=== PATIENT | female | born 1975 | race Caucasian/White ===

== ENCOUNTER → 2016-11-02 | Outpatient (CLI) | payer OTHER ==
[~2016-11-02] MED LIST: ALBUAER2 INH; MULT-506 PO; PRAM1TAB6 PO; PSEU30TA20 PO; RANI150T3 PO; SNG10 PO
[2016-11-02 13:19] LABS: BASO % 0.3 %; BASO ABS # 0.02 K/uL (0-0.2); COMPLETE YES; EOS % 3.7 %; HEMATOCRIT 37.8 % (37-47); IG% 0.3 %; LYMPH % 41.5 %; LYMPH ABS # 2.55 K/uL (1.2-3.4); MEAN CELL VOLUME 85.9 fL (80-100); MEAN CORPUSCULAR HEMOGLOBIN 29.1 pg (25-34); MEAN CORPUSCULAR HGB CONC 33.9 g/dl (32-36); MEAN PLATELET VOLUME 9.6 fL (7.4-10.4); MONO % 6.5 %; NEUT % 47.7 %; PLATELET COUNT 172 K/uL (130-400); WHITE BLOOD COUNT 6.15 K/uL (4.8-10.8)
[2016-11-02 13:43] LABS: CALCIUM 9.1 mg/dl (8.5-10.1)
[2016-11-02 13:44] LABS: BLOOD UREA NITROGEN 15 mg/dl (7-18); BUN/CREATININE RATIO 18.9 (10-20); CARBON DIOXIDE 27 mmol/L (21-32); CHLORIDE 109 mmol/L (98-107); CREATININE 0.78 mg/dl (0.60-1.20); GLUCOSE 73 mg/dl (70-99); POTASSIUM 3.4 mmol/L (3.5-5.1); SODIUM 142 mmol/L (136-145)
[2016-11-02 13:47] LABS: CHOLESTEROL 193 mg/dl (0-200); CHOLESTEROL/HDL RATIO 4.6; HDL CHOLESTEROL 42 mg/dl; LDL CHOLESTEROL CALCULATED 107 mg/dl; TRIGLYCERIDES 220 mg/dl (0-150); VERY LOW DENSITY LIPOPROT CALC 44 mg/dl
== END | disposition home or self-care (01) ==
LOC: C.LAB1850 12:22
PROVIDERS: ATTEND Nurse Practitioner Adult Health
DX: I10 Essential (primary) hypertension (principal)

== ENCOUNTER 2017-02-19 10:24 | Emergency (ER) | payer OTHER ==
[~2017-02-19] VITALS: Ht 170.2 cm; Wt 115.8 kg
[2017-02-19 10:32] VITALS: TEMP 37.1; Ht 170.2 cm; Wt 115.8 kg
[2017-02-19] MEDS ORDERED: ACETAMINOPHEN 500 MG TAB PO STA (10:55)
[2017-02-19] MEDS ORDERED: IBUPROFEN 200 MG TAB PO STA (10:55)
[2017-02-19] MEDS ORDERED: COUGH DROP (SUGAR FREE) LOZ 24 LOZ/1 BOX PO STA (10:55)
[2017-02-19] MEDS ORDERED: SODIUM CHLORIDE 0.9% 1000ML 1,000 ML IV STA (10:55)
[2017-02-19] MEDS ORDERED: AZITHROMYCIN 250 MG TAB PO ONE (11:00)
--- NOTE | 2017-02-19 11:11 | EMERGENCY ROOM VISIT NOTE ---
History Report prepared by Taylor: Lynette Smith Under the Supervision of: Dr. Blane Francois M.D. First contact with patient: 10:36 Chief Complaint: COUGH Stated Complaint: COUGH, SOB, LIGHTHEADED, MUCUS History of Present Illness The patient is a 42 year old white female with a past medical history of cholecystectomy, hypertension, depression, and section who presents to the ED with a cc of constant cough beginning 3 weeks ago. Pt states that she has had a productive cough with yellow-green sputum and a runny nose of a similar color. She notes that everyone at home is sick with similar symptoms and they have not yet seen a doctor. She reports that she has no history of blood clots. Positive congestion, runny nose, fever of 101.4. Negative recent antibiotics, leg swelling. She notes that she has taken decongestants, Motrin, and Tylenol. Source of History: patient Onset: 3 weeks ago Position: other (global) Quality: other (cough) Timing: constant Associated Symptoms: + fevers Note: Positive congestion, runny nose. Denies leg swelling. Review of Systems See HPI for pertinent positives and negatives. A total of ten systems were reviewed and were otherwise negative. Past Medical & Surgical Medical Problems: (1) section (2) Failure to progress in second stage of labor Family History Cancer Heart disease Social History Smoking Status: Never Smoker Marital Status: Housing Status: lives with significant other Occupation Status: other Current/Historical Medications Scheduled Azithromycin (Zithromax), 250 MG PO DAILY Bupropion HCl (Bupropion HCl Sr), 100 MG PO DAILY Hydrochlorothiazide (Hydrochlorothiazide), 25 MG PO DAILY Montelukast Sod (Montelukast Sodium), 10 MG PO HS Multivitamin (Multivitamin), 1 TAB PO DAILY Pramipexole Dihydrochloride (Pramipexole Dihydrochlori), 1 MG PO HS Ranitidine Hcl (Zantac), 150 MG PO DAILY Scheduled PRN Albuterol Hfa (Ventolin Hfa), 2 PUFFS INH Q4H PRN for SOB/Wheezing Allergies Coded Allergies: Citalopram (Verified Allergy, Severe, SHORTNESS OF BREATH, 02/19/17) Aspirin (Verified Adverse Reaction, Intermediate, NOSEBLEED- CAN TAKE IBUPROFEN, 02/19/17) Physical Exam Vital Signs Date Time Temp Pulse Resp B/P (MAP) Pulse Ox O2 Delivery O2 Flow Rate FiO2 02/19/17 13:11 72 16 124/76 98 Room Air 02/19/17 12:16 68 16 120/74 98 Room Air 02/19/17 11:16 72 16 115/73 96 Room Air 02/19/17 10:32 98 Room Air 02/19/17 10:32 37.1 98 17 147/85 95 Room Air Physical Exam GENERAL: Awake, alert, well-appearing, NAD HENT: Normocephalic, atraumatic. EYES: Normal conjunctiva. Sclera non-icteric. NECK: Supple. No nuchal rigidity. FROM. RESPIRATORY: Senoras breath sounds, no rhonchi, wheezing, crackles CARDIAC: RRR, no MRG ABDOMEN: Soft, NTND, BS+ MSK: No chest wall TTP, no LE edema NEURO: GCS 15, CN 2-12 intact, moves all 4s on command SKIN: No rash or jaundice noted. Medical Decision & Procedures ER Provider Diagnostic Interpretation: X-ray: Per my interpretation, radiologist review. CHEST 2 VIEWS ROUTINE FINDINGS: No pneumothorax. No pleural effusions. The heart is normal in size. Focal airspace opacity within the anterior segment of the right upper lobe. Faint patchy airspace opacity within the left lower lobe. No evidence for pulmonary edema. IMPRESSION: Right upper lobe and left lower lobe airspace opacities consistent with a multifocal pneumonia. Recommend one month chest x-ray follow to ensure resolution. Electronically signed by: Nasir Rutledge M.D. 02/19/2017 11:49 AM Dictated Date/Time: 02/19/2017 11:45 AM Laboratory Results 02/19/17 11:15 Red Blood Count 3.88, Mean Corpuscular Volume 85.1, Mean Corpuscular Hemoglobin 29.9, Mean Corpuscular Hemoglobin Concent 35.2, Mean Platelet Volume 9.8, Neutrophils (%) (Auto) 79.3, Lymphocytes (%) (Auto) 11.1, Monocytes (%) (Auto) 7.3, Eosinophils (%) (Auto) 1.3, Basophils (%) (Auto) 0.2, Neutrophils # (Auto) 11.30, Lymphocytes # (Auto) 1.58, Monocytes # (Auto) 1.04, Eosinophils # (Auto) 0.18, Basophils # (Auto) 0.03 02/19/17 11:15 Test 02/19/17 11:15 White Blood Count 14.25 K/uL (4.8-10.8) Red Blood Count 3.88 M/uL (4.2-5.4) Hemoglobin 11.6 g/dL (12.0-16.0) Hematocrit 33.0 % (37-47) Mean Corpuscular Volume 85.1 fL (80-100) Mean Corpuscular Hemoglobin 29.9 pg (25-34) Mean Corpuscular Hemoglobin Concent 35.2 g/dl (32-36) Platelet Count 168 K/uL (130-400) Mean Platelet Volume 9.8 fL (7.4-10.4) Neutrophils (%) (Auto) 79.3 % Lymphocytes (%) (Auto) 11.1 % Monocytes (%) (Auto) 7.3 % Eosinophils (%) (Auto) 1.3 % Basophils (%) (Auto) 0.2 % Neutrophils # (Auto) 11.30 K/uL (1.4-6.5) Lymphocytes # (Auto) 1.58 K/uL (1.2-3.4) Monocytes # (Auto) 1.04 K/uL (0.11-0.59) Eosinophils # (Auto) 0.18 K/uL (0-0.5) Basophils # (Auto) 0.03 K/uL (0-0.2) RDW Standard Deviation 42.2 fL (36.4-46.3) RDW Coefficient of Variation 13.6 % (11.5-14.5) Immature Granulocyte % (Auto) 0.8 % Immature Granulocyte # (Auto) 0.12 K/uL (0.00-0.02) Prothrombin Time 12.0 SECONDS (9.0-12.0) Prothromb Time International Ratio 1.1 (0.9-1.1) Activated Partial Thromboplast Time 33.1 SECONDS (21.0-31.0) Partial Thromboplastin Ratio 1.3 Anion Gap 10.0 mmol/L (3-11) Est Creatinine Clear Calc Drug Dose 111.1 ml/min Estimated GFR () 96.6 Estimated GFR (Non- 83.3 BUN/Creatinine Ratio 22.8 (10-20) Calcium Level 8.8 mg/dl (8.5-10.1) Laboratory results reviewed by me Medications Administered Medications (Trade) Dose Ordered Sig/Deyanira Route Start Time Stop Time Status Last Admin Dose Admin Sodium Chloride 1,000 ml @ 999 mls/hr Q1H1M STAT IV 02/19/17 10:55 02/19/17 11:55 DC 02/19/17 10:55 999 MLS/HR Ibuprofen (Advil Tab) 400 mg NOW STAT PO 02/19/17 10:55 02/19/17 10:58 DC 02/19/17 10:55 400 MG Acetaminophen (Tylenol Tab) 1,000 mg NOW STAT PO 02/19/17 10:55 02/19/17 10:58 DC 02/19/17 10:55 1,000 MG Menthol (Nice Abundio) 1 abundio NOW STAT PO 02/19/17 10:55 02/19/17 10:58 DC 02/19/17 10:55 1 ABUNDIO Azithromycin (Zithromax Tab) 500 mg NOW ONCE PO 02/19/17 11:00 02/19/17 11:01 DC 02/19/17 11:00 500 MG Magnesium Oxide (Mag-Ox Tab) 800 mg ONE STAT PO 02/19/17 11:57 02/19/17 11:59 DC 02/19/17 11:57 800 MG Potassium Chloride (Muriel Ciel Elix) 40 meq NOW STAT PO 02/19/17 11:57 02/19/17 11:59 DC 02/19/17 11:57 40 MEQ Ceftriaxone Sodium (Rocephin Inj) 1 gm NOW STAT IV 02/19/17 11:59 02/19/17 12:00 DC 02/19/17 11:59 1 GM ECG Indication: SOB/dyspnea Rate (beats per minute): 99 Rhythm: normal sinus Findings: no ectopy, other (normal intervals, motion artifact in lateral leads , no STS changes or T wave inversions) ED Course 1036: The patient was evaluated in room C7. A complete history and physical exam was performed. 1055: Menthol 1 abundio PO, Tylenol Tab 1000mg PO, Advil Tab 400mg PO, Sodium Chloride 1000 ml @ 999 mls/hr IV. 1100: Zithromax Tab 500mg PO. 1157: Potassium Chloride 40meq PO, Magnesium Oxide 800mg PO, Rocephin Inj 1gm IV. 1315: I reevaluated the patient. Discussed results and discharge instructions: She verbalized understanding and agreement. The patient is ready for discharge. Medical Decision The patient is a 42 year old white female with a past medical history of cholecystectomy, hypertension, depression, and section who presents to the ED with a cc of constant cough beginning 3 weeks ago. Differential diagnosis: Etiologies such as infections, reactive airway disease, pneumonia, pneumothorax , COPD, CHF, cardiac ischemia, pulmonary embolism, musculoskeletal, gastrointestinal, as well as others were entertained. Patient was seen and evaluated at the bedside. Patient has complained of persistent cough for 2-3 weeks. Patient has noted that her family members have had some similar symptoms although they improved. Patient denies a flu shot. Patient has had some rhinorrhea. She has not had a headache or signs of meningismus or meningitis. Patient has tried Motrin and Tylenol without much additional relief. She's also tried nasal sprays and decongestants. Patient's prolonged symptoms patient received empiric antibiotics with azithromycin. Patient also received supportive care had blood work, EKG, chest x-ray completed. Patient's white blood cell count was 14,000. Patient did have a chest x-ray concerning for multifocal pneumonia. Patient was not tachycardic nor tachypneic nor hypotensive nor hypoxic. EKG non-ischemic. Patient did receive Rocephin in addition to azithromycin. Patient was feeling much improved. Patient was very well-appearing and agreed with outpatient treatment given her stable vital signs. Rx given for home. Patient was told return if she gets any worse within the next 24-48 hours. Patient agreed with plan of care and patient was safely discharged home. Medication Reconcilliation Current Medication List: was personally reviewed by me Blood Pressure Screening Patient's blood pressure: Elevated blood pressure Blood pressure disposition: Elevated BP felt to be situational Impression Primary Impression: Cough Additional Impression: Multifocal pneumonia Scribe Attestation The scribe's documentation has been prepared under my direction and personally reviewed by me in its entirety. I confirm that the note above accurately reflects all work, treatment, procedures, and medical decision making performed by me. Departure Information Dispostion Home / Self-Care Prescriptions Azithromycin (Zithromax) 250 Mg Tab 250 MG PO DAILY for 4 Days, #4 TAB Prov: Blane Francois M.D. 02/19/17 Referrals Tawanna Burger C.R.N.P. (PCP) Patient Instructions My [facility], Pneumonia Additional Instructions Please return to the emergency department if you have worsening or recurrent symptoms not amenable to at-home treatment. Please call for a follow-up appointment with her primary care physician. Please take your medications as prescribed. If you have other concerns and/or complaints please feel free to also call your primary care physician's office or return the ED for further evaluation, management, and treatment. You may take 600 mg Ibuprofen every 6 hours as needed for pain with food for no more than 2 consecutive days. You may take tylenol 1000mg every 6 hours as needed for pain. You may take motrin and tylenol separately or at the same time. You have been examined and treated today on an emergency basis only. This is not a substitute for, or an effort to provide, complete comprehensive medical care. It is impossible to recognize and treat all injuries or illnesses in a single emergency department visit. It is therefore important that you follow up closely with [facility] [address]. Call as soon as possible for an appointment. Thank you for your time and consideration. I look forward to speaking with you again soon. Please don't hesitate to call us if you have any questions. Problem Qualifiers
[2017-02-19 11:31] LABS: MEAN CELL VOLUME 85.1 fL (80-100); MEAN CORPUSCULAR HEMOGLOBIN 29.9 pg (25-34); MEAN CORPUSCULAR HGB CONC 35.2 g/dl (32-36); MEAN PLATELET VOLUME 9.8 fL (7.4-10.4); PLATELET COUNT 168 K/uL (130-400); RED BLOOD COUNT 3.88 M/uL (4.2-5.4); WHITE BLOOD COUNT 14.25 K/uL (4.8-10.8)
[2017-02-19 11:41] LABS: INR 1.1 (0.9-1.1); PARTIAL THROMBOPLASTIN RATIO 1.3
[2017-02-19] MEDS ORDERED: VNTHFA/IN INH (11:43)
[2017-02-19] MEDS ORDERED: HYDR25TA5 PO (11:44)
[2017-02-19] MEDS ORDERED: WLLSR100 PO (11:44)
--- NOTE | 2017-02-19 11:50 | DIAGNOSTIC IMAGING REPORT ---
CHEST 2 VIEWS ROUTINE HISTORY: Short of breath. Cough. Atypical CHEST PAIN COMPARISON: Chest 05/01/2014. FINDINGS: No pneumothorax. No pleural effusions. The heart is normal in size. Focal airspace opacity within the anterior segment of the right upper lobe. Faint patchy airspace opacity within the left lower lobe. No evidence for pulmonary edema. IMPRESSION: Right upper lobe and left lower lobe airspace opacities consistent with a multifocal pneumonia. Recommend one month chest x-ray follow to ensure resolution. Electronically signed by: Nasir Rutledge M.D. 02/19/2017 11:49 AM Dictated Date/Time: 02/19/2017 11:45 AM
[2017-02-19 11:54] LABS: BUN/CREATININE RATIO 22.8 (10-20); CALCIUM 8.8 mg/dl (8.5-10.1); CREATININE 0.85 mg/dl (0.60-1.20); POTASSIUM 2.9 mmol/L (3.5-5.1)
[2017-02-19] MEDS ORDERED: MAGNESIUM OXIDE 400 MG TAB PO STA (11:57)
[2017-02-19] MEDS ORDERED: POTASSIUM CHLORIDE 20 MEQ/15 ML UDC PO STA (11:57)
[2017-02-19] MEDS ORDERED: CEFTRIAXONE SOD INJ 1 GM ADDVIAL IV STA (11:59)
[2017-02-19 12:11] LABS: BASO % 0.2 %; BASO ABS # 0.03 K/uL (0-0.2); COMPLETE YES; EOS % 1.3 %; IG% 0.8 %; LYMPH % 11.1 %; LYMPH ABS # 1.58 K/uL (1.2-3.4); MONO % 7.3 %; NEUT % 79.3 %
[2017-02-19] MEDS ORDERED: AZIT250T PO (12:57)
[2017-02-19 13:11] VITALS: BP 124/76; PULSE 72; O2SAT 98
== END 2017-02-19 13:30 | disposition home or self-care (01) ==
LOC: C.EDB 10:25 → C.EDC 13:30
DX: R05 Cough (principal); J18.9 Pneumonia, unspecified organism; I10 Essential (primary) hypertension; F32.9 Major depressive disorder, single episode, unspecified

== ENCOUNTER → 2017-02-20 | Outpatient (CLI) | payer OTHER ==
[~2017-02-20] MED LIST changes: -ALBUAER2 INH; +AZIT250T PO; +HYDR25TA5 PO; -PSEU30TA20 PO; +VNTHFA/IN INH; +WLLSR100 PO
== END | disposition home or self-care (01) ==
LOC: C.PAPS 12:18
PROVIDERS: ATTEND Physician Assistant
DX: Z12.4 Encounter for screening for malignant neoplasm of cervix (principal)

== ENCOUNTER 2017-03-04 08:59 | Emergency (ER) | payer OTHER ==
[~2017-03-04] VITALS: Ht 167.6 cm; Wt 113.9 kg
[~2017-03-04 08:59] MED LIST changes: -AZIT250T PO
[2017-03-04 09:14] VITALS: TEMP 37; Ht 167.6 cm; Wt 113.9 kg
[2017-03-04 09:27] VITALS: O2SAT 95
[2017-03-04] MEDS ORDERED: ALBUT/IPRATROP 3MG/0.5MG NEB 3 ML VIAL INH STA (09:30)
--- NOTE | 2017-03-04 09:39 | EMERGENCY ROOM VISIT NOTE ---
History First contact with patient: :19 Chief Complaint: COUGH Stated Complaint: COUGH, BLOOD IN MUCUS,SINUSES STUFFED, HERE 02/19 Nursing Triage Summary: 2 weeks ago dx with pneumonia pt did feel better but today awoke with productive cough blood in sputum general illness and body aches History of Present Illness The patient is a 42 year old female who presents to the Emergency Room with complaints of shortness of breath and recurrent cough today. She came tot he ED two weeks ago, and was found to have a RUL and LLL pneumonia on CXR, after having had a cough for about 3 weeks. She was given a dose of Rocephin but also a Z pack to finish at home. She reports it took her a week to feel better. She had a period of feeling ok for 2 days. She woke up today with new shortness of breath and persistent cough. She reports there was a small amount of blood tinged sputum, but when she coughed again this did not happen. She reports she has a history of asthma. She does not use a Flovent or Proair inhaler regularly. She has never been intubated or admitted for asthma exacerbations. She last used Proair once yesterday before bed. She denies further fevers. Source of History: patient History Limited By: dyspnea Symptom Intensity: mild Timing: intermittent Associated Symptoms: No fevers, No chills, No headache, No diaphoresis, No sorethroat, No neck pain, No chest pain, No nausea, No vomiting, No abdominal pain Review of Systems See HPI for pertinent positives & negatives. A total of 10 systems reviewed and were otherwise negative. Past Medical/Surgical History Medical Problems: (1) section (2) Failure to progress in second stage of labor Family History Cancer Heart disease Social History Smoking Status: Never Smoker Marital Status: Housing Status: lives with significant other Occupation Status: other Current/Historical Medications Scheduled Bupropion HCl (Bupropion HCl Sr), 100 MG PO DAILY Hydrochlorothiazide (Hydrochlorothiazide), 25 MG PO DAILY Montelukast Sod (Montelukast Sodium), 10 MG PO HS Multivitamin (Multivitamin), 1 TAB PO DAILY Potassium Chloride (K-Tabs), 1 TAB PO BID Pramipexole Dihydrochloride (Pramipexole Dihydrochlori), 1 MG PO HS Ranitidine Hcl (Zantac), 150 MG PO DAILY Scheduled PRN Albuterol Hfa (Ventolin Hfa), 2 PUFFS INH Q4H PRN for SOB/Wheezing Albuterol Hfa (Ventolin Hfa), 2-4 PUFFS INH Q6H PRN for Shortness of Breath Physical Exam Vital Signs Date Time Temp Pulse Resp B/P (MAP) Pulse Ox O2 Delivery O2 Flow Rate FiO2 03/04/17 10:52 97 16 147/75 95 03/04/17 10:37 97 16 147/75 95 Room Air 03/04/17 09:27 95 Room Air 03/04/17 09:15 98 Room Air 03/04/17 09:14 37.0 107 20 146/83 97 Room Air Physical Exam GENERAL: Awake, alert, well-appearing, in no acute distress. HENT: Normocephalic, atraumatic. Oropharynx unremarkable. EYES: Normal conjunctiva. Sclera non-icteric. NECK: Supple. No nuchal rigidity. FROM. No JVD. RESPIRATORY: Clear to auscultation. No audible wheeze, crackles, or rales. CARDIAC: Regular rate, normal rhythm. Extremities warm and well perfused. Pulses equal. ABDOMEN: Soft, non-distended. No tenderness to palpation. No rebound or guarding. No masses. RECTAL: Deferred. MUSCULOSKELETAL: Chest examination reveals no tenderness. The back is symmetrical on inspection without obvious abnormality. There is no CVA tenderness to palpation. No joint edema. LOWER EXTREMITIES: Calves are equal size bilaterally and non-tender. No edema. No discoloration. NEURO: Normal sensorium. No sensory or motor deficits noted. SKIN: No rash or jaundice noted. Medical Decision & Procedures Laboratory Results 03/04/17 09:38 Red Blood Count 4.23, Mean Corpuscular Volume 85.6, Mean Corpuscular Hemoglobin 29.6, Mean Corpuscular Hemoglobin Concent 34.5, Mean Platelet Volume 9.7, Neutrophils (%) (Auto) 71.4, Lymphocytes (%) (Auto) 18.4, Monocytes (%) (Auto) 8.0, Eosinophils (%) (Auto) 1.6, Basophils (%) (Auto) 0.3, Neutrophils # (Auto) 5.52, Lymphocytes # (Auto) 1.42, Monocytes # (Auto) 0.62, Eosinophils # (Auto) 0.12, Basophils # (Auto) 0.02 03/04/17 09:38 Test 03/04/17 09:38 White Blood Count 7.72 K/uL (4.8-10.8) Red Blood Count 4.23 M/uL (4.2-5.4) Hemoglobin 12.5 g/dL (12.0-16.0) Hematocrit 36.2 % (37-47) Mean Corpuscular Volume 85.6 fL (80-100) Mean Corpuscular Hemoglobin 29.6 pg (25-34) Mean Corpuscular Hemoglobin Concent 34.5 g/dl (32-36) Platelet Count 172 K/uL (130-400) Mean Platelet Volume 9.7 fL (7.4-10.4) Neutrophils (%) (Auto) 71.4 % Lymphocytes (%) (Auto) 18.4 % Monocytes (%) (Auto) 8.0 % Eosinophils (%) (Auto) 1.6 % Basophils (%) (Auto) 0.3 % Neutrophils # (Auto) 5.52 K/uL (1.4-6.5) Lymphocytes # (Auto) 1.42 K/uL (1.2-3.4) Monocytes # (Auto) 0.62 K/uL (0.11-0.59) Eosinophils # (Auto) 0.12 K/uL (0-0.5) Basophils # (Auto) 0.02 K/uL (0-0.2) RDW Standard Deviation 42.8 fL (36.4-46.3) RDW Coefficient of Variation 14.0 % (11.5-14.5) Immature Granulocyte % (Auto) 0.3 % Immature Granulocyte # (Auto) 0.02 K/uL (0.00-0.02) Anion Gap 8.0 mmol/L (3-11) Est Creatinine Clear Calc Drug Dose 82.1 ml/min Estimated GFR () 69.2 Estimated GFR (Non- 59.7 BUN/Creatinine Ratio 16.0 (10-20) Calcium Level 9.0 mg/dl (8.5-10.1) Medications Administered Medications (Trade) Dose Ordered Sig/Deyanira Route Start Time Stop Time Status Last Admin Dose Admin Albuterol/ Ipratropium (Duoneb) 3 ml ONE STAT INH 03/04/17 09:30 03/04/17 09:31 DC 03/04/17 09:41 3 ML ED Course 9:30AM: I evaluated the patient in room A9B. A complete history and physical examination were performed. 9:33AM: I reviewed the case with Dr. Vyas, Attending physician. I ordered a CBC , PRP, CXR. I provided a Duoneb treatment. 9:52AM: Dr. Vyas also evaluated the patient. 10:15AM: I checked on the patient. She reported feeling better. I informed her that her CXR results were negative. 10:32AM: The patient was discharged home in good condition. Medical Decision 42 year old female with recent pneumonia who presents with new shortness of breath. Differential includes: bronchitis, pneumonia, asthma exacerbation, viral URI, postnasal drip. She had an IV placed and labs drawn. She was given a Duoneb treatment. This provided some relief and she felt well afterwards. She was slightly hypokalemic on labwork, otherwise labs were unremarkable. She was instructed on how to use and the frequency of using her Ventolin inhaler. She was advised to use this with a spacer to ensure the medication reaches into her lungs. She was discharged home in good condition and advised to follow up with her PCP. Blood Pressure Screening Blood pressure disposition: Elevated BP felt to be situational Impression Primary Impression: Acute bronchitis Departure Information Dispostion Home / Self-Care Condition GOOD Prescriptions Potassium Chloride (K-Tabs) 10 Meq Tabcr 1 TAB PO BID for 14 Days, #28 TAB Prov: Inez Moody MD 03/04/17 Albuterol Hfa (VENTOLIN HFA) 200 Puffs/[id number] Mcg Aers 2-4 PUFFS INH Q6H Y for Shortness of Breath for 30 Days, #1 INHALER Use SPACER DEVICE Prov: Inez Moody MD 03/04/17 Referrals Tawanna Burger C.R.NVitaPVita (PCP) Patient Instructions My [facility]
[2017-03-04 09:50] LABS: BASO % 0.3 %; BASO ABS # 0.02 K/uL (0-0.2); COMPLETE YES; EOS % 1.6 %; HEMATOCRIT 36.2 % (37-47); IG% 0.3 %; LYMPH % 18.4 %; LYMPH ABS # 1.42 K/uL (1.2-3.4); MEAN CELL VOLUME 85.6 fL (80-100); MEAN CORPUSCULAR HEMOGLOBIN 29.6 pg (25-34); MEAN CORPUSCULAR HGB CONC 34.5 g/dl (32-36); MEAN PLATELET VOLUME 9.7 fL (7.4-10.4); NEUT % 71.4 %; PLATELET COUNT 172 K/uL (130-400); RED BLOOD COUNT 4.23 M/uL (4.2-5.4); WHITE BLOOD COUNT 7.72 K/uL (4.8-10.8)
--- NOTE | 2017-03-04 09:52 | EMERGENCY ROOM VISIT NOTE ---
ED Visit Note First contact with patient: 09:19 Resident Physician Supervision Note: I interviewed and examined the patient. Discussed with Dr. Moody and agree with findings and plan as documented in the note. Any exceptions or clarifications are listed here: [None] Documented By: Isaac Vyas
[2017-03-04 10:06] LABS: CREATININE 1.12 mg/dl (0.60-1.20); POTASSIUM 3.2 mmol/L (3.5-5.1)
--- NOTE | 2017-03-04 10:23 | DIAGNOSTIC IMAGING REPORT ---
CHEST 2 VIEWS ROUTINE CLINICAL HISTORY: recent PNA - new cough dyspnea COMPARISON STUDY: 02/17/2017 FINDINGS: The bones soft tissues and hemidiaphragms are normal. The cardiomediastinal silhouette is normal. The lungs are clear. The pulmonary vasculature is normal. IMPRESSION: Negative chest. The above report was generated using voice recognition software. It may contain grammatical, syntax or spelling errors. Electronically signed by: Kimo Daniels M.D. 03/04/2017 10:22 AM Dictated Date/Time: 03/04/2017 10:21 AM
[2017-03-04] MEDS ORDERED: VNTHFA/IN INH (10:34)
[2017-03-04] MEDS ORDERED: MCRK/10 PO (10:35)
[2017-03-04 10:52] VITALS: BP 147/75; PULSE 97; O2SAT 95
== END 2017-03-04 10:53 | disposition home or self-care (01) ==
LOC: C.EDB 09:01 → C.EDA 10:53
DX: J20.9 Acute bronchitis, unspecified (principal); J45.909 Unspecified asthma, uncomplicated

== ENCOUNTER → 2017-04-05 | Outpatient (CLI) | payer OTHER ==
[~2017-04-05] MED LIST changes: +MCRK/10 PO
--- NOTE | 2017-04-05 13:19 | DIAGNOSTIC IMAGING REPORT ---
LEFT KNEE 2 VIEWS HISTORY: [id number] Left knee [id number] COMPARISON: None. FINDINGS: There is no fracture or dislocation. Soft tissues are unremarkable. No radiopaque foreign bodies. Small knee effusion. Cartilage spaces are maintained for age. IMPRESSION: No fractures. Small knee effusion. Electronically signed by: Nasir Rutledge M.D. 04/05/2017 1:17 PM Dictated Date/Time: 04/05/2017 1:17 PM
== END | disposition home or self-care (01) ==
LOC: C.RAD1850 12:21
PROVIDERS: ATTEND Nurse Practitioner Adult Health
DX: S89.92XA Unspecified injury of left lower leg, initial encounter (principal); X58.XXXA Exposure to other specified factors, initial encounter

== ENCOUNTER → 2017-04-10 | Outpatient (CLI) | payer OTHER ==
--- NOTE | 2017-04-10 16:58 | DIAGNOSTIC IMAGING REPORT ---
CHEST 2 VIEWS ROUTINE CLINICAL HISTORY: R05 cough COMPARISON STUDY: 03/04/2017 FINDINGS: The cardiac and mediastinal contours are normal. There is no evidence of focal pulmonary consolidation. There is no evidence of failure. No pleural effusions are visualized.[ IMPRESSION: No active disease in the chest. Electronically signed by: Stefan Jaramillo M.D. 04/10/2017 4:56 PM Dictated Date/Time: 04/10/2017 4:56 PM
== END | disposition home or self-care (01) ==
LOC: C.RAD1850 16:19
PROVIDERS: ATTEND Physician Assistant Medical
DX: Z86.39 Personal history of other endocrine, nutritional and metabolic disease (principal); R05 Cough

== ENCOUNTER → 2017-04-17 | Outpatient (CLI) | payer OTHER ==
[2017-04-17 13:44] LABS: POTASSIUM 3.3 mmol/L (3.5-5.1)
[2017-04-17 13:53] LABS: MAGNESIUM 1.9 mg/dl (1.8-2.4)
== END | disposition home or self-care (01) ==
LOC: C.LAB1850 11:05
PROVIDERS: ATTEND Nurse Practitioner Adult Health
DX: Z86.39 Personal history of other endocrine, nutritional and metabolic disease (principal)

== ENCOUNTER → 2017-04-27 | Outpatient (CLI) | payer OTHER ==
--- NOTE | 2017-04-27 08:43 | DIAGNOSTIC IMAGING REPORT ---
(BARIUM SWALLOW) ESOPHAGUS CLINICAL HISTORY: 42 years-old Female with K21.9 Acid reflux [id number] Difficulty [id number]. Gastroesophageal reflux TECHNIQUE: Barium contrast and effervescent crystals were administered to the patient under fluoroscopic examination. Multiple images were obtained and submitted for review. FLUOROSCOPY TIME: 0.9 minutes COMPARISON: Chest radiographs 04/10/2017, upper GI 07/29/2008. FINDINGS: During deglutition, contrast material flowed freely through the cervical esophagus. No filling defect or mucosal abnormality is identified. No abnormal stricturing or mass effect is seen. The mid to distal esophagus is well coated and distended. No abnormal stricturing or mucosal abnormality is identified. No significant reflux or hiatal hernia was demonstrated during the exam. The GE junction is normal in appearance. Impression: Unremarkable esophagram. The above report was generated using voice recognition software. It may contain grammatical, syntax or spelling errors. Electronically signed by: Rashard Lorenzana M.D. 04/27/2017 8:42 AM Dictated Date/Time: 04/27/2017 8:37 AM
== END | disposition home or self-care (01) ==
LOC: C.RAD 07:37
PROVIDERS: ATTEND Physician Assistant Medical
DX: K21.9 Gastro-esophageal reflux disease without esophagitis (principal); R13.10 Dysphagia, unspecified

== ENCOUNTER → 2017-05-03 | Outpatient (CLI) | payer OTHER ==
[~2017-05-03] MED LIST changes: +BUPR200T2 PO; +CETI10TA84 PO; +ERYT2GEL3; +FLUT1INH INH; +FLUT50SP45 NAE; +LACT1LOT3 TOP; +LISI10TA PO; +NALT50TA5 PO; +OMEP20TA PO; +POTA10TA PO; +PRAM1TAB10 PO; +PRAM1TAB47 PO; -PRAM1TAB6 PO; +XPNINS INH
--- NOTE | 2017-05-04 13:47 | MAMMOGRAPHY REPORT ---
BILATERAL FIRST EVER DIGITAL SCREENING MAMMOGRAM TOMOSYNTHESIS WITH CAD: 05/03/2017 CLINICAL HISTORY: Routine screening. Baseline exam. TECHNIQUE: Breast tomosynthesis in addition to standard 2D mammography was performed. Current study was also evaluated with a Computer Aided Detection (CAD) system. COMPARISON: No prior exams were available for comparison. BREAST COMPOSITION: The tissue of both breasts is almost entirely fatty. FINDINGS: There is a possible 8 mm mass in the anterior right breast, slightly medial to the nipple on the CC view, for which additional targeted ultrasound and possible additional mammographic views a re recommended, although this could represent a cyst. No other suspicious masses, calcifications, architectural distortion or asymmetry is seen bilaterally . IMPRESSION: ACR BI-RADS CATEGORY 0: INCOMPLETE EVALUATION: NEED ADDITIONAL IMAGING EVALUATION The possible 8mm mass in the anterior left breast needs additional evaluation. The patient will be called to schedule an appointment. Approximately 10% of breast cancers are not detected with mammography. A negative mammographic report should not delay biopsy if a clinically suggestive mass is present. Chantale Quiles M.D. ay/:05/03/2017 16:47:43 Professor Computer Science: Oriana GAMEZ)(Ailyn), [facility] letter sent: Addl Imaging 0 BI-RADS Code: ACR BI-RADS Category 0: Incomplete Evaluation: Need Additional Imaging Evaluation
== END | disposition home or self-care (01) ==
LOC: C.MAMM 14:36
PROVIDERS: ATTEND Physician Assistant
DX: Z12.31 Encounter for screening mammogram for malignant neoplasm of breast (principal)

== ENCOUNTER → 2017-05-16 | Outpatient (CLI) | payer OTHER ==
[~2017-05-16] MED LIST changes: -BUPR200T2 PO; -CETI10TA84 PO; -ERYT2GEL3; -FLUT1INH INH; -FLUT50SP45 NAE; -LACT1LOT3 TOP; -LISI10TA PO; -NALT50TA5 PO; -OMEP20TA PO; -POTA10TA PO; -PRAM1TAB10 PO; -PRAM1TAB47 PO; +PRAM1TAB6 PO; -XPNINS INH
--- NOTE | 2017-05-16 14:30 | MAMMOGRAPHY REPORT ---
ULTRASOUND OF LEFT BREAST: 05/16/2017 CLINICAL HISTORY: Callback from baseline screening mammogram for a possible 8 mm lobulated mass in th e 11:00 to 12:00 anterior left breast. COMPARISON: Comparison is made to exam dated: 05/03/2017 mammogram - [facility]. FINDINGS: Targeted ultrasound was performed in the anterior left breast with particular attention to the 11:00 and 12:00 axes. In the 11:00 left breast periareolar region, there is an oval parallel ci rcumscribed anechoic benign simple cyst with posterior acoustic enhancement, measuring 8.0 x 3.2 x 5. 4 mm. This correlates well in size, shape and location as the mammographic mass and is benign. No f urther workup is needed at this time. IMPRESSION: ACR BI-RADS CATEGORY 2: BENIGN The possible 8 mm mass in the 11:00 anterior left breast correlates with a benign anechoic simple cys t on ultrasound. There is no targeted sonographic evidence of malignancy in the left breast. Recomm end routine screening tomosynthesis mammography in one year. Chantale Quiles M.D. ay/:05/16/2017 11:05:04 Medical Registrar: Dr. Chantale Quiles, [facility] letter sent: Normal 1/2 BI-RADS Code: ACR BI-RADS Category 2: Benign
== END | disposition home or self-care (01) ==
LOC: C.MAMM 10:10
PROVIDERS: ATTEND Physician Assistant
DX: R92.8 Other abnormal and inconclusive findings on diagnostic imaging of breast (principal); N63.20 Unspecified lump in the left breast, unspecified quadrant

== ENCOUNTER → 2017-05-18 | Outpatient (CLI) | payer OTHER | END | disposition home or self-care (01) | LOC: C.LAB1850 11:02 | PROVIDERS: ATTEND Nurse Practitioner Adult Health | DX: Z86.39 Personal history of other endocrine, nutritional and metabolic disease (principal) ==

== ENCOUNTER → 2017-05-31 | Outpatient (CLI) | payer OTHER ==
--- NOTE | 2017-05-31 16:42 | DIAGNOSTIC IMAGING REPORT ---
TWO VIEW CHEST CLINICAL HISTORY: Cough. Dyspnea. FINDINGS: PA and lateral chest radiographs are compared to study dated 04/10/2017. The cardiomediastinal silhouette is unremarkable. Scattered calcified granulomas are similar to previous. No airspace consolidation or pleural effusion is identified. There is minimal bibasilar atelectasis. There is no pneumothorax. The bony thorax appears intact. IMPRESSION: No active disease in the chest. Electronically signed by: Dandre Kennedy M.D. 05/31/2017 4:41 PM Dictated Date/Time: 05/31/2017 4:40 PM
== END | disposition home or self-care (01) ==
LOC: C.RAD1850 16:11
PROVIDERS: ATTEND Nurse Practitioner Adult Health
DX: R05 Cough (principal); R06.02 Shortness of breath

== ENCOUNTER → 2017-09-07 | Outpatient (CLI) | payer OTHER ==
[~2017-09-07] MED LIST changes: +PRAM1TAB10 PO; -PRAM1TAB6 PO
== END | disposition home or self-care (01) ==
LOC: C.LABSPEC 16:52
PROVIDERS: ATTEND Neuromusculoskeletal Medicine & OMM
DX: J39.2 Other diseases of pharynx (principal)

== ENCOUNTER → 2017-12-27 | Outpatient (CLI) | payer OTHER ==
[~2017-12-27] MED LIST changes: +BUPR200T2 PO; +CETI10TA84 PO; +ERYT2GEL3; +FLUT1INH INH; +FLUT50SP45 NAE; +LACT1LOT3 TOP; +LISI10TA PO; -MCRK/10 PO; +NALT50TA5 PO; +OMEP20TA PO; +POTA10TA PO; -PRAM1TAB10 PO; +PRAM1TAB47 PO; -WLLSR100 PO; +XPNINS INH
--- NOTE | 2017-12-27 10:06 | DIAGNOSTIC IMAGING REPORT ---
(BARIUM SWALLOW) ESOPHAGUS CLINICAL HISTORY: R13.10 Difficulty swallowing chronic dysphasia COMPARISON STUDY: 04/07/2017 FLUOROSCOPY TIME: 1 minute. NUMBER OF FLUOROSCOPIC IMAGES: 22 FINDINGS: The patient swallowed effervescent granules and barium without difficulty. Rapid sequence swallows in the AP and lateral projections were unremarkable. No esophageal masses or ulcerations are visualized. There was minor esophageal dysmotility. The patient swallowed one half barium tablet which freely passed into the stomach. IMPRESSION: Minor esophageal dysmotility. Otherwise unremarkable study Electronically signed by: Stefan Jaramillo M.D. 12/27/2017 10:05 AM Dictated Date/Time: 12/27/2017 9:55 AM
== END | disposition home or self-care (01) ==
LOC: C.RAD 09:21
PROVIDERS: ATTEND Registered Nurse
DX: R13.10 Dysphagia, unspecified (principal)